=== PATIENT | male | born 1955 | race Caucasian/White ===

== ENCOUNTER 2025-02-23 00:35 | Emergency (ER) | payer BC, SELFPAY ==
[2025-02-23] VITALS (8 sets, daily range): BP systolic 137–179; BP diastolic 85–107; PULSE 72–85; RESP 14–22; TEMP 36.7–36.9; O2SAT 95–98; BMI 26.6
--- NOTE | 2025-02-23 00:44 | ED_ITS ---
HPI - General Adult General Date Seen: 02/23/25 Chief complaint: Laceration/Wound Stated complaint: fall, head lac Time Seen by Provider: 02/23/25 00:40 History of Present Illness HPI narrative: [age]-year-old gentleman presenting to the ER today for evaluation head injury with scalp laceration after a syncopal event. Per his medical record he has no previous visits [facility]. Per [facility] care link his last recorded visit was in August 2017 with the [facility] system, at that time he had a history of left inguinal hernia surgery, hypertension, varicose veins. He was on lisinopril and p.r.n. Tylenol. Since then he largely isn't stop going to primary care. He has been healthy and well. He recalls that he had trouble with varicose veins in his right leg so he had vein surgery done at [facility] in 2019. Since then he has had some mild edema in the right leg (in particular it is notable at the end of his shift) but is otherwise healthy and well. He is not currently on any medications. He does not know of any history of diabetes, strokes, seizures, high blood pressure, high cholesterol, coronary artery disease, valvular disease, arrhythmia. He has been healthy and well recently. No recent travel. No recent febrile illness. No cough. No shortness of breath. No recent chest pain. No history of palpitations at all. Normal brown regular stools lately. No abdominal pain. No flank pain. 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 He has been on his regular work schedule lately. He typically has a fairly big meal in the morning after work with his , before they both go to sleep for the day. He does recall that yesterday morning after his retail shift supervisor he did not have his usual male. He just went straight to bed. He got up this evening and felt essentially fine at home. He only had a little bit to drink but no food prior to going to work. He does recall that he had about 5 or 6 episodes at work where he had episodes of feeling lightheaded. He felt like his vision was going a little bit blurry and he felt a little bit lightheaded. These all Past briefly and got better. He did take it his 1st evening break tonight at about 11 and did have a small snack then and thought that he would feel better after eating. 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 He had a few 2nd prodrome of feeling a little bit dizzy and like he was getting dizzy. No chest pain. No palpitations. No headache. No abdominal pain. No back pain. He then notes that he woke up on the floor. He had struck his left parietal scalp against the floor and was bleeding. Since falling he has had a mild headache. No nausea. Normal vision. He has also had mild ache in the back of his neck. He is coworkers applied a dressing on his head where was bleeding and he came here to the ER. He is still not having any chest pain, palpitations, shortness breath, abdominal pain, back pain, flank pain. No other injuries from the fall. He is not on any medications. Related Data Home Medications ?Medication ?Instructions ?Recorded ?Confirmed No Known Home Medications 02/23/2501/31 Allergies Allergy/AdvReac Type Severity Reaction Status Date / Time No Known Drug Allergies Allergy Verified 02/23/25 00:46 [facility] Medical History (Updated 02/23/25 @ 03:29 by Quinton Burnett MD) Varicose veins of right lower extremity with edema ?I83.891 - Varicose veins of right lower extremity with other complications (ICD-10) Cellulitis of leg without foot, right ?L03.115 - Cellulitis of right lower limb (ICD-10) Incarcerated left inguinal hernia ?K40.30 - Unilateral inguinal hernia, with obstruction, without gangrene, not specified as recurrent (ICD-10) Hypertension ?I10 - Essential (primary) hypertension (ICD-10) Surgical History (Updated 02/23/25 @ 02:16 by Bill Esposito RN) History of hernia repair ?Z98.890 - Other specified postprocedural states (ICD-10) ?Z87.19 - Personal history of other diseases of the digestive system (ICD-10) S/P left inguinal herniorrhaphy ?Z98.890 - Other specified postprocedural states (ICD-10) ?Z87.19 - Personal history of other diseases of the digestive system (ICD-10) Social History Smoking Status: Never smoker Second hand tobacco smoke exposure: No How often do you have a drink containing alcohol: never AUDIT-C Alcohol total score: 0 Non-prescribed substance use: denies use Exam Narrative: Exam Narrative: Primary Survey: A- patent. Speaking clearly. Phonation normal. No stridor. B- breathing easily. Lung sounds clear and equal. Oxygen saturation normal on room air C- no active bleeding. Blood pressure stable. Symmetric pulses and cap refill in 4 extremities. D- alert and oriented x3. GCS 15. No focal deficits. He does have a Coban dressing wrapping around his scalp that is covering some gauze over his left parietal/occipital scalp. No active bleeding. Constitutional: Appears well-developed and well-nourished. Alert. Conversant. Non toxic. HENT: Head: No depressed skull fracture, Raccoon Eyes, Flynn's sign, or hemotympanum. Face normal. Nose: Nose normal. Mouth/Throat: Oral mucosa is clear and moist. no trismus. Pharynx normal. Tonsils symmetric. No tonsillar enlargement, erythema, or exudate. Eyes: Conjunctivae normal. EOM normal. Pupils equal, round, and reactive to light. No scleral icterus. Neck: Normal range of motion. Neck supple. No tracheal deviation present. Mild diffuse posterior tenderness without any clear step-off. This does include the midline. Cardiovascular: Normal rate, regular rhythm. No gallop. No friction rub. No murmur heard. Symmetric radial artery pulses Pulmonary/Chest: Effort normal. No stridor. No respiratory distress. No wheezes. No rales. No rhonchi . No tenderness. Abdominal: Soft. Bowel sounds normal. No distension. No mass. No tenderness. No rebound. No guarding. Musculoskeletal: No T or L-spine tenderness. Pelvis is stable. RUE: Normal range of motion. No tenderness. No deformity LUE: Normal range of motion. No tenderness. No deformity RLE: Normal range of motion. Trace edema (patient says he has had chronic edema like this ever since his varicose vein surgery 6 years ago). No tenderness. No deformity LLE: Normal range of motion. No edema. No tenderness. No deformity Neurological: Alert and oriented to person, place, and time. Normal strength. CN II-VII intact. No sensory deficit. GCS eye subscore is 4. GCS verbal subscore is 5. GCS motor subscore is 6. Normal coordination Skin: Skin is warm and dry. No rash noted. No pallor. Normal capillary refill. Psychiatric: Normal mood. Normal affect. Very polite. Intelligent. Const: Vital Signs, click to edit/add: Vital Signs - 24 hr 02/23/25 00:43 02/23/25 01:30 02/23/25 01:32 Temperature 98.1 F Pulse Rate 72 73 Pulse Rate [Pulse Oximeter] 83 Respiratory Rate 16 15 15 Blood Pressure 137/85 141/85 H Blood Pressure [Ri ght Upper Arm] 175/97 H Pulse Oximetry 98 98 95 Oxygen Delivery Me thod Room Air 02/23/25 02:22 02/23/25 02:32 02/23/25 03:32 Temperature 98.5 F Pulse Rate 85 81 75 Pulse Rate [Pulse Oximeter] Respiratory Rate 14 16 22 Blood Pressure 162/107 H 179/102 H 160/100 H Blood Pressure [Ri ght Upper Arm] Pulse Oximetry 98 98 96 Oxygen Delivery Me thod Course Course ED Course: Multiple bedside rechecks. Recheck again. Patient remained stable. Discussed with the patient and his by phone the CT findings and recommended further evaluation. Recheck-patient is willing to go to [facility] but now questioning whether not he needs to be today. He is questioning whether not transfer by ambulance will be covered by his insurance. I had a detailed discussion with the patient. He was sitting up at the bedside. We discussed that it is unclear why he was having these dizzy spells tonight him why he lost consciousness. Concern is that if he has a tumor with surrounding edema the could have had a seizure. We discussed that right now them my impression based on his imaging is that the tumor itself is probably a meningioma which are generally benign and will not be come metastatic or malignant. Patient questions whether not he will need surgery for it. I discussed that I cannot answer that here in the ER and that he needs to consult with Neurology and Neurosurgery to get accurate recommendations. Even if this is a meningioma that does not require surgery, I still have concern with the mass effect from the meningioma and potential mass effect on the sagittal vein which can lead to dural sinus thrombosis and other more catastrophic acute INSTALL AND REPAIR TECHNICIAN problems. Also there appears to be some surrounding edema on the CT scan. I strongly recommend that he transfer to [facility] today. For further workup Patient then questions whether not it is necessary to go by ambulance. He says he only has 1 car and does not know how he we get home from the hospital [facility] if his cars in the parking lot at work. My recommendation is transferred by EMS because of safety and potential risk for more events along the way. The patient, however, is refusing that. I think he is concerned the ambulance transfer may not be covered by his insurance. He is also concerned because his is very anxious at home and he wants to go home and see her 1st. Ultimately I feel that we do not have any clear documented seizure here so I do not have adequate evidence to put him on a driving restriction. I feel that it is in the patient's best interest to get the workup done today so if the decision is for him to sign out AMA and not go to mail at all versus go to [place] by private car, it is best for him to go by private car. He says he does not have any friends or relatives who could drive him down to [place]. Vital Signs Vital signs: Initial Vital Signs Temperature 98.1 F 02/23/25 00:43 Temperature Source Temporal Artery Scan 02/23/25 00:43 Pulse Rate 83 02/23/25 00:43 Respiratory Rate 16 02/23/25 00:43 Blood Pressure 175/97 H 02/23/25 00:43 Blood Pressure Mean 123 H 02/23/25 00:43 Blood Pressure Position Supine 02/23/25 00:43 Pulse Oximetry 98 02/23/25 00:43 Oxygen Delivery Method Room Air 02/23/25 00:43 Vital Signs Temperature 98.1 F 02/23/25 00:43 Pulse Rate 83 02/23/25 00:43 Respiratory Rate 16 02/23/25 00:43 Blood Pressure 175/97 H 02/23/25 00:43 Pulse Oximetry 98 02/23/25 00:43 Oxygen Delivery Method Room Air 02/23/25 00:43 Temperature 98.5 F 02/23/25 03:32 Pulse Rate 75 02/23/25 03:32 Respiratory Rate 22 02/23/25 03:32 Blood Pressure 160/100 H 02/23/25 03:32 Pulse Oximetry 96 02/23/25 03:32 Oxygen Delivery Method Room Air 02/23/25 00:43 Medications Administered Medications: Discontinued Medications Generic Name Dose Route Start Last Admin Trade Name Mildred PRN Reason Stop Dose Admin Sodium Chloride 1,000 mls @ 1,000 mls/hr 02/23/25 01:15 02/23/25 02:45 0.9 % Sodium Chloride 1000 Ml IV 02/23/25 02:14 Infused .Q1H KAYLIE Infusion Lidocaine/Epinephrine 20 ml 02/23/25 01:11 02/23/25 01:55 Lidocaine 1%-Epi 1:100,000 Mdv INFILTRATI 02/23/25 01:12 20 ml ONCE ONE Administration Medical Decision Making MDM Narrative Medical decision making narrative: Very pleasant 69-year-old gentleman who does currently follow with primary care and is on no meds presents to the ER today by private car from work for e valuation of scalp laceration and head injury after he lost consciousness at work this evening. 1. Syncope . This patient presents for evaluation of a loss of consciousness event. A broad differential was considered. History provided suggests a benign cause of syncope. No murmurs . Initial ECG shows normal sinus rhythm and no dysrhythmogenic abnormality such as WPW, prolonged QT, Brugada syndrome, and no ischemia. No symptoms/findings concerning for cardiac ischemia or ACS . He describes a prodrome of lightheadedness before losing consciousness and striking his head. It sounds like the episode was not witnessed so it is unclear if he could have seized or not. However given the prodrome of lightheadedness this would probably argue against a generalized tonic-clonic seizure. clinical research monitor while the patient here in the ER showed no dysrhythmia or ectopy. A broad differential diagnosis was considered including SVT, Atrial fibrillation, ventricular arrhythmia, thyroid disease, acute electrolyte abnormality, drugs/medications, medication side effect, anemia, heart disease, PE, among others. Abnormal D-dimer prompted CT PA. CT scan is negative for PE or any other acute pulmonary problem. The workup and exam here in ED shows no evidence at this point for cardiac etiology for syncope. 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 He did not eat breakfast yesterday morning and really did not any food before going to work today. It is possible that he was just a little bit dehydrated. However he had eaten a snack during his 1st break before this episode of syncope occurred. Urinalysis shows a mildly concentrated specific gravity of 1.020. No sign of infection. Lactic acid is mildly elevated 2.5. No evidence for sepsis or septic shock. Glucose is 143. Other electrolytes are normal. Kidney function is normal. 2. Head injury. The patient did strike his head and suffered a stellate laceration to the scalp. Given age and trauma we did perform a noncontrast head CT to evaluate for underlying skull fracture, traumatic intracranial hemorrhage. CT scan does not show any radiographic evidence for acute emergency. Scalp laceration is cleansed by copious irrigation by nursing staff and was closed by myself here in the ER. We elected to close with sutures rather than jessica because he will need follow-up MRI and jessica could potentially cause artifact on imaging. Discussed wound care, need for suture removal in 7 days. We placed blue Prolene sutures, with long 1 cm tails, to make them easier to locate and removed. Total of 7 stitches placed into the wound. Tetanus 3. Noncontrast head CT does show a round calcified mass in the occipital region. Rough dimensions would be about 2.7 x 3 cm. This is thought to be likely a meningioma per Radiology but there is some associated edema and some mass effect on the sagittal sinus. Follow-up MR imaging with and without contrast as well as MR venogram are recommended by Radiology. With this newly discovered mass, consider the possibility the patient actually had a seizure that led to his loss of [facility]. Here in the ER he is neurologically intact, GCS 15, conversant telogen. No focal deficits. No apparent seizure activity. Upon initially discovering the mass I did place a consult to Neurology at [facility]. Discussed with Dr. Caro. He agrees that the patient would benefit from transfer for MR imaging (as recommended by Radiology) and consultation with Neurosurgery. MR imaging is not available here in [facility]. It would be available later today, possibly by around noon, but we do not have neurosurgery specialty consultation. Therefore transfer is indicated. Discussed this with the patient, in person. Discussed also with his , by phone. They would agree with plan to transfer and request transfer to the [facility] system since he has previous relationship with [facility] and his gets primary care through [facility]. 4. Incidental thyroid nodule is noted on the patient's C-spine CT. Recommend outpatient follow-up for surveillance. Incidental pulmonary nodules noted on chest CT. Patient needs follow-up chest CT scan in 12 months per Radiology recommendation. 5. Disposition. Discussed the finding of the incidental brain tumor with the patient and his . With concern for surrounding edema and potential effect on the sagittal sinus, patient does need transfer for MR imaging (which would not be available here at [facility] until at least the morning) as well as specialty consultation with Neurology and Neurosurgery to figure out whether not this lesion requires treatment, resection, or observation. Family and patient requests transfer to [facility]. We did contact [facility]. Discussed with the neurologist on-call, Dr. Escobedo at 3:39 a.m. and she accepts the patient. Transfer may be delayed pending bed availability in the mail system. Lab Data Labs: Lab Results 02/23/25 02/23/25 Range/Units 01:00 01:05 WBC 8.15 (4.50-11.00) K/uL RBC 5.44 (4.30-5.90) m/uL Hgb 15.2 (13.5-17.5) gm/dL Hct 48.0 (37.0-53.0) % MCV 88 (80-100) fL MCH 28 (26-34) pg MCHC 32 (32-36) gm/dL RDW Coeff of Amina 12.4 (11.5-15.5) % Plt Count 188 (140-440) K/uL Neut % (Auto) 75.2 H (42.0-72.0) % Lymph % (Auto) 14.4 L (20-44) % [place] % (Auto) 8.2 (0.0-11.0) % Eos % (Auto) 1.1 (0.0-7.0) % Baso % (Auto) 0.6 (0.0-3.0) % Neut # (Auto) 6.10 (1.7-7.0) K/uL Lymph # (Auto) 1.20 (0.90-2.90) K/uL [place] # (Auto) 0.70 (0.00-0.90) K/UL Eos # (Auto) 0.09 (0.00-0.50) K/uL Baso # (Auto) 0.05 (0.00-0.30) K/uL Abs Immat Gran (auto) 0.04 (0.00-0.30) K/uL Imm/Tot Granulo (auto) 0.5 % D-Dimer Quant (PE/DVT) 2.37 H (0.00-0.50) ug/ml Sodium 139 (135-149) mmol/L Potassium 3.9 (3.6-5.1) mmol/L Chloride 103 (96-114) mmol/L Carbon Dioxide 24 (20-32) mmol/L Anion Gap 12 (7-15) mEq/L BUN 25 (7-30) mg/dL Creatinine 1.5 (0.5-1.5) mg/dL Estimated Creat Clear 46.48 Estimated GFR 50 ml/min Glucose 143 H (60-115) mg/dL Lactate 2.5 H (0.5-1.9) mmol/L Calcium 8.9 (8.4-10.6) mg/dL Urine Color Yellow (Yellow) Urine Appearance Cloudy A (Clear) Urine pH 5.5 (5.0-8.5) Ur Specific [place] 1.020 (1.000-1.030) Urine Protein 2+ A (Negative) Urine Glucose (UA) Negative (Negative) Urine Ketones Trace A (Negative) Urine Blood Trace-intact A (Negative) Urine Nitrite Negative (Negative) Urine Bilirubin 1+ A (Negative) Urine Urobilinogen 0.2 (0.2-1.0) Ur Leukocyte Esterase Negative (Negative) Urine RBC 0-2 (0-2) Urine WBC 0-2 (0-5) Ur Squamous Epith Cells Few (None-Few) Amorphous Sediment Few A (None) Urine Bacteria Few A (None) Hyaline Casts Many A (None-Few) Urine Mucus Many A (None) POC Troponin I 0.01 (0.01-0.04) ng/ml Imaging Data CT scan - head: Attestation: I have reviewed the pertinent imaging results. My impression: I was called to the CT scanner by the sales technician home theater to review the patient's images. I would went to the CT scanner and review them as they came off the scanner. There is a 2-3 cm round calcified lesion in the right occipital cortex. I think this is probably a calcified tumor such as a meningioma. I do notice some edema around it. No definite mass effect. I do not think it represents an intraparenchymal hemorrhage. I do not see any other subdural or epidural hematoma. I asked for a stat Radiology read. Radiologist's impression: Impression: 1. Partially calcified, presumed extra-axial lesion, likely meningioma, in the left parietal lobe. This compresses or potentially invades the superior sagittal sinus demonstrates edema along the adjacent parenchyma. Recommend contrast-enhanced MRI with additional MR venogram. 2. Left vertex scalp laceration with no other acute traumatic abnormality appreciated. CT C-spine: Attestation: I have reviewed the pertinent imaging results. Radiologist's impression: Impression: 1. Partially visualized large thyroid nodule measures at least 5.2 centimeters. Nonemergent outpatient thyroid ultrasound recommended for further characterization. 2. No acute traumatic abnormality appreciated. Chest x-ray: Attestation: I have reviewed the pertinent imaging results. Radiologist's impression: Findings/Impression: No acute cardiopulmonary process detected. CT scan - chest: Attestation: I have reviewed the pertinent imaging results. My impression: No large central PE Radiologist's impression: Impression: 1. No acute abnormality appreciated. 2. Scattered pulmonary nodules measure up to 1-2 millimeters. Follow-up CT of the chest in 12 months recommended. ECG Data Attestation: I personally reviewed and interpreted this ECG as follows: Interpretation: Normal sinus rhythm Rate 72 HI interval 174. No delta waves. Normal QRS axis. No ST segment elevation or depression. No ischemia. No Brugada QT 372, QTC 407 Discharge Plan Discharge Clinical Impression: Meningioma, Cerebral edema, Thyroid nodule, Syncope, Pulmonary nodules Patient Disposition: Xfer Other Condition: Guarded Additional Instructions: Please go directly to [facility] the [facility] in [place], [place]. He would been accepted for admission there for further workup with b rain MRI and consultation with specialists. Please do not eat or drink until after you are evaluated at [facility]. Prescriptions: No Action No Known Home Medications Stand Alone Forms: [place] [employer] Info Instructions Procedures Laceration Left occipital parietal scalp laceration: Pre procedure diagnosis: Scalp laceration Verification/time out: correct patient and correct procedure Site: scalp (Left occipital parietal scalp. Stellate Y-shaped laceration. Total length 5 cm) Side (If applicable): left Size (cm): 5 Description: stellate Depth: simple, single layer (Penetrates down to the galea but does not require galea stitches.) Local Anesthetic: lidocaine 1% and with epi Pre-repair: wound explored Skin layer closed with: nylon (4-0 Prolene) Size (cm): 4-0 Number of sutures: 7 Technique: simple, interrupted
--- NOTE | 2025-02-23 01:01 | CRLHL7_ITS ---
For Patients: As a result of the Century Cures Act, medical imaging exams and procedure reports are released immediately into your electronic medical record. You may view this report before your referring provider. If you have questions, please contact your health care provider. Indication: Headache, head injury, syncope Technique: Noncontrast CT through the head with multiplanar reformats Comparison: None Findings: Brain: There is a partially calcified, suspected extra-axial lesion in the left parietal lobe which measures 32 x 29 x 27 millimeters. This may be invading or compressing the superior sagittal sinus. There is adjacent parenchymal hypodensity. No acute hemorrhage. No herniation. No additional mass lesion appreciated. Mild chronic senescent disease. Ventricles: No acute abnormality appreciated. Orbits, sinuses, mastoids: No acute abnormality appreciated. Calvarium and soft tissues: Laceration along the left vertex scalp. Impression: 1. Partially calcified, presumed extra-axial lesion, likely meningioma, in the left parietal lobe. This compresses or potentially invades the superior sagittal sinus demonstrates edema along the adjacent parenchyma. Recommend contrast-enhanced MRI with additional MR venogram. 2. Left vertex scalp laceration with no other acute traumatic abnormality appreciated. Please note that all CT scans at this facility use dose modulation, iterative reconstruction, and/or weight-based dosing when appropriate to reduce radiation dose to as low as reasonably achievable. Dictated by Fenrando Traylor MD @ 02/23/2025 1:41:51 AM (Electronically Signed)
--- NOTE | 2025-02-23 01:01 | CRLHL7_ITS ---
For Patients: As a result of the Cures Act, medical imaging exams and procedure reports are released immediately into your electronic medical record. You may view this report before your referring provider. If you have questions, please contact your health care provider. Indication: Fall, blunt trauma, neck pain Technique: Noncontrast CT through the cervical spine with multiplanar reformats Comparison: None Findings: Alignment: Mild spondylolisthesis and reversal of the normal lordotic curvature. No acute malalignment appreciated. Bones: No acute fracture. No lytic or blastic lesion. Cervical levels: No acute abnormality appreciated. Mild spondylosis. Soft tissues: Partially visualized large thyroid nodule measures 5.2 centimeters. Impression: 1. Partially visualized large thyroid nodule measures at least 5.2 centimeters. Nonemergent outpatient thyroid ultrasound recommended for further characterization. 2. No acute traumatic abnormality appreciated. Please note that all CT scans at this facility use dose modulation, iterative reconstruction, and/or weight-based dosing when appropriate to reduce radiation dose to as low as reasonably achievable. Dictated by Fernando Traylor MD @ 02/23/2025 1:43:38 AM (Electronically Signed)
--- NOTE | 2025-02-23 01:02 | CRLHL7_ITS ---
For Patients: As a result of the Cures Act, medical imaging exams and procedure reports are released immediately into your electronic medical record. You may view this report before your referring provider. If you have questions, please contact your health care provider. Indication: Syncope Technique: Two views of the chest Comparison: None Findings/Impression: No acute cardiopulmonary process detected. Dictated by Fernando Traylor MD @ 02/23/2025 1:42:15 AM (Electronically Signed)
[2025-02-23 01:13] LABS: Lactate* 2.5 mmol/L (0.5-1.9)
[2025-02-23 01:17] LABS: Appearance Urine Cloudy (Clear)
[2025-02-23 01:17] LABS: Hematocrit* 48.0 % (37.0-53.0); Hemoglobin* 15.2 gm/dL (13.5-17.5); Immature Granulocytes Abs Auto 0.04 K/uL (0.00-0.30); Immature Granulocytes Pct Auto 0.5 %; Mean Corpuscular HGB Conc 32 gm/dL (32-36); Mean Corpuscular Hemoglobin 28 pg (26-34); Mean Corpuscular Volume 88 fL (80-100); RDW Coefficient of Variation % 12.4 % (11.5-15.5); Red Blood Count* 5.44 m/uL (4.30-5.90); White Blood Count* 8.15 K/uL (4.50-11.00)
[2025-02-23 01:22] LABS: Lymphocytes Absolute Auto 1.20 K/uL (0.90-2.90); Slide Review Reflex No
[2025-02-23 01:29] LABS: Chloride* 103 mmol/L (96-114); Potassium* 3.9 mmol/L (3.6-5.1); Sodium* 139 mmol/L (135-149)
[2025-02-23 01:32] LABS: Anion Gap 12 mEq/L (7-15); Blood Urea Nitrogen* 25 mg/dL (7-30); Carbon Dioxide* 24 mmol/L (20-32); Creatinine* 1.5 mg/dL (0.5-1.5); Est. Creatinine Clearance* 46.48; Estimated Glomerular Filt Rate 50 ml/min
[2025-02-23 01:33] LABS: Calcium* 8.9 mg/dL (8.4-10.6); Glucose* 143 mg/dL (60-115)
[2025-02-23 01:35] LABS: D Dimer Quantitative* 2.37 ug/ml (0.00-0.50)
[2025-02-23 01:43] LABS: Troponin, Point-of-Care* 0.01 ng/ml (0.01-0.04)
--- NOTE | 2025-02-23 01:49 | CRLHL7_ITS ---
For Patients: As a result of the Century Cures Act, medical imaging exams and procedure reports are released immediately into your electronic medical record. You may view this report before your referring provider. If you have questions, please contact your health care provider. Indication: Syncope, abnormal D-dimer Technique: Postcontrast CTA of the chest following 95 mL Isovue 370 IV contrast. Axial MIP images obtained. Comparison: None Findings: Pulmonary arteries: No pulmonary embolism appreciated. Lungs: No consolidation. No effusion. No pneumothorax. Few scattered pulmonary nodules measure up to 1-2 millimeters. Mediastinum: No acute abnormality appreciated. Lymph nodes: No gross lymphadenopathy. Upper abdomen: No acute abnormality appreciated. Soft tissues: No acute abnormality appreciated. Bones: No acute abnormality appreciated. Impression: 1. No acute abnormality appreciated. 2. Scattered pulmonary nodules measure up to 1-[address] millimeters[address] Follow-up CT of the chest in 12 months recommended. Please note that all CT scans at this facility use dose modulation, iterative reconstruction, and/or weight-based dosing when appropriate to reduce radiation dose to as low as reasonably achievable. Dictated by Fernando Traylor MD @ 02/23/2025 3:10:44 AM (Electronically Signed)
--- OUTSIDE RECORDS SUMMARY | 2025-02-23 02:27 | XMS_ITS | Clinical Summary ---
Author Organization [facility] Address [facility] [place] [address] Care Team Providers Care Spooler Operator Automatic Name Role Phone Pcp, No Primary Care Provider Unavailabl e Allergies No known active allergies Medications lisinopril (PRINIVIL; ZESTRIL) 10 mg tablet Take 10 mg by mouth once daily. Active acetaminophen (TYLENOL EXTRA STRGTH) 500 mg tabletIndicati ons:pain Take 1,000 mg by mouth every 6 hours if needed. Max acetaminophen dose: 4000mg in 24 hrs. 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 Gender Identity Not on file Sexual Orientation Not on file Obstetrics History Last Filed Vital Signs Vital Sign Reading Time Taken Comments Blood Pressure 123/73 09/04/2017 8:18 AM CDT Pulse 77 09/04/2017 8:18 AM CDT Temperature 36.6 C (97.9 F) 09/04/2017 8:18 AM CDT Respiratory Rate 16 09/04/2017 8:18 AM CDT Oxygen Saturation 96% 09/04/2017 8:18 AM CDT Inhaled Oxygen Concentration - - Weight 75.6 kg (166 lb 9.6 oz) 09/01/2017 8:18 P M CDT Height 175.3 cm (5' 9) 09/01/2017 8:18 PM CDT Body Mass Index 24.6 09/01/2017 8:18 PM CDT Plan of Treatment Health Maintenance Due Date Last Done Comments Tetanus booster 06/07/1966 Depression screening for age 12+ 1967 BMI (ht and wt on same day) for age 18+ 06/07/1973 Hepatitis C screening for ag e 18-79 06/07/1973 Colonoscopy through age 75 06/07/2000 Lipids for age 45-75 06/07/2000 Pneumococcal series for age 50+ (1 of 1 - PCV) 06/07/2005 Zoster (shingles) series for age 50+ (1 of 2) 06/07/2005 Influenza Vaccine (#1) 2024 RSV vaccine for adults or (1 - 1-dose 75+ series) 06/07/2030 Hepatitis B series for 19+ Aged Out N o longer eligible based on patient's age to complete this topic Medical Devices Explanted Type Area Coordinator Of Library Services Device Identifier Shelf Expiration Date Model / Serial / Lot Mesh Inguinal 6x6in [employer] - [id number] Implanted:Qty: 1 Explanted:Qty: 1 on 08/23/2017 at [facility] N/A: Abdomen [employer] 11/26/2020 [id number] / / [id number] Description:Umbilical site Wasted no charge Insurance [facility] Advance Directives Documents on File Type Date Recorded Patient Transportation Operations Manager Expl anation Healthcare Directive 05/18/2014 10:21 PM 0 04/17/2013 * Full Code (Latest Code Status on File) Date Activated Date Inactivated Comments 09/01/2017 9:06 PM 09/04/2017 4:12 PM Question Answer Comments Code Status Discussion: Discussed * Full Code Date Activated Date Inactivated Comments 08/22/2017 2:26 PM 08/24/2017 8:38 PM Question Answer Comments Code Status Discussion: Not Discussed Care Teams Spooler Operator Automatic Relationship Specialty Start Date End Date Pcp, No . PCP - General 08/03/17
== END 2025-02-23 06:02 | disposition other institution (70) ==
PROVIDERS: Emergency Provider Emergency Medicine
DX: R55 Syncope and collapse (principal); W18.00XA Striking against unspecified object with subsequent fall, initial encounter; D32.0 Benign neoplasm of cerebral meninges; G93.6 Cerebral edema; R91.1 Solitary pulmonary nodule; E04.1 Nontoxic single thyroid nodule
CPT/HCPCS: 12002; 36415; 70450; 71046; 71275; 72125; 80048; 81001; 83605; 84484; 85025; 85379; 87086; 93005; 96360; 99285; J7030; Q9967